=== PATIENT | male | born 1995 | race African-American/Black ===

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

== ENCOUNTER 2018-02-06 17:07 | Emergency (ER) | payer SELFPAY ==
[~2018-02-06 17:07] MED LIST: ZOFR4TAB3 SL
[2018-02-06 17:26] VITALS: BP 115/56; PULSE 62; RESP 17; TEMP 98.4; O2SAT 100
[2018-02-06] MEDS ORDERED: POLY10O RIGHT EYE (17:52)
--- NOTE | 2018-02-06 17:52 | PD ---
HPI Chief Complaint: Eye Problems/Injury Time Seen by Provider: 17:45 Travel History International Travel<30 days: No Contact w/Intl Traveler<30days: No History of Present Illness HPI 22-year-old male presents to the emergency department with complaint of a stye to his right lower eyelid for the past 2-3 days. He has history of styes and this is consistent with past studies. Denies fever, vomiting. Denies eye pain. Says the area is just uncomfortable. Denies change in vision. Says he woke up this morning with his eye crusted shut. Has tried [id number] stye medicine with some relief of symptoms. Say the stye goes up and down throughout the day. No known allergies. No primary care provider. Denies significant past medical history. Has no other medical complaints. No other modifying factors or associated signs and symptoms. PFSH Past Medical History Diminished Hearing: No Past Surgical History Abdominal Surgery: Yes (HERNIA) Tonsillectomy: Yes Tympanostomy Tube: Yes (BILATERAL) Social History Alcohol Use: No Tobacco Use: No Substance Use: Yes (marijaunia daily) Allergies-Medications (Allergen,Severity, Reaction): Coded Allergies: No Known Allergies (Unverified Adverse Reaction, Unknown, 02/06/18) Reported Meds & Prescriptions Reported Meds & Active Scripts Active Polytrim Opth Drops (Polymyxin/Trimethoprim Sulfate) 10,000-0.1 Unit/Ml-% Soln 2 Drop RIGHT EYE Q6HR 7 Days Zofran Odt (Ondansetron Odt) 4 Mg Tab 4 Mg SL Q6HR PRN Review of Systems Except as stated in HPI: all other systems reviewed are Neg Physical Exam Narrative GENERAL: Well-nourished, well-developed black male patient, in no acute distress SKIN: Warm and dry. HEAD: Atraumatic. Normocephalic. EYES: Pupils equal and round at 3 mm with brisk reaction. PERRLA. EOMI. right lower eyelid with external hordeolum that is soft on palpation; no drainage noted. Right eye without scleral erythema and with mild lower lid edema. No orbital tenderness, erythema or cellulitis. Right eye without photophobia. No consensual photophobia. No scleral icterus. No drainage. ENT: Mucosa pink and moist. Airway patent. NECK: Trachea midline. CARDIOVASCULAR: Regular rate. RESPIRATORY: No accessory muscle use. GASTROINTESTINAL: Flat. NEUROLOGICAL: Awake and alert. Oriented 3. No obvious cranial nerve deficits. Motor grossly within normal limits. Normal speech. PSYCHIATRIC: Appropriate mood and affect; insight and judgment normal. Data Data Last Documented VS Vital Signs Date Time Temp Pulse Resp B/P (MAP) Pulse Ox O2 Delivery O2 Flow Rate FiO2 02/06/18 17:26 98.4 62 17 115/56 (75) 100 Orders Orders Ed Discharge Order (02/06/18 17:52) MDM Medical Decision Making Medical Screen Exam Complete: Yes Emergency Medical Condition: Yes Medical Record Reviewed: Yes Differential Diagnosis Hordeolum externum, hordeolum internum, conjunctivitis Narrative Course 22-year-old male with an external hordeolum of his right lower eyelid. Instructed patient to do warm compresses and discussed symptom management. Polytrim eyedrops prescribed for home. Instructed patient to follow up with primary care provider. Patient verbalizes understanding and agreement with treatment plan. Patient is medically cleared and stable for discharge. Discussed reasons to return to the emergency department. Patient agrees with treatment plan. The patients vital signs are stable and the patient is stable for outpatient follow-up and treatment. Patient discharged home, stable and in no acute distress. Diagnosis Primary Impression: Hordeolum externum right lower eyelid Referrals: [facility] Primary Care Physician Patient Instructions: General Instructions, Zhen (ED) Additional Instructions: Do not try to pop the sty or squeeze pus from the sty Clean-air eyelid gently with mild soap and water Warm compresses to affected eye 2-3 times daily to encourage the sty to drain on its own Keep your eye clean; don't wear makeup Do not wear contact lenses; go without contact lenses until this diagnosis away Follow-up with ophthalmology as needed Follow-up with primary care provider Return to the emergency department immediately with worsening of symptoms Med/Other Pt SpecificInfo: Prescription(s) given Scripts Polymyxin B-Trimethoprim Opth Drops (Polytrim Opth Drops) 10,000-0.1 Unit/Ml-% Soln 2 DROP RIGHT EYE Q6HR for Mgmt Bacterial Infection for 7 Days, #1 BOTTLE 0 Refills Prov: Domenica Haley 02/06/18 Disposition: 01 DISCHARGE HOME Condition: Stable Domenica Haley Feb 06, 2018 17:52
== END 2018-02-06 18:19 | disposition home or self-care (01) ==
LOC: NEPK 17:07
DX: H00.025 Hordeolum internum left lower eyelid (principal); F12.90 Cannabis use, unspecified, uncomplicated
CPT/HCPCS: 99283